=== PATIENT | male | born 1975 | race Caucasian/White ===

== ENCOUNTER 2019-09-06 21:36 | Inpatient (IN) | payer BC ==
[~2019-09-06] VITALS: Ht 180.3 cm; Wt 79.8 kg
--- NOTE | 2019-09-06 22:00 | NUR ---
Dr. Feng at bedside for MSE.
[2019-09-06] MEDS ORDERED: ONDANSETRON 4 MG/2 ML VIAL IV ONE (22:30)
[2019-09-06] MEDS ORDERED: HYDROMORPHONE 1 MG/1 ML DISP.SYRIN IV ONE (22:30)
--- NOTE | 2019-09-06 22:35 | NUR ---
Xray at bedside.
[2019-09-06] MEDS ORDERED: ONDANSETRON 4 MG/2 ML VIAL ONE (22:36)
[2019-09-06] MEDS ORDERED: HYDROMORPHONE 1 MG/1 ML DISP.SYRIN ONE (22:36)
[2019-09-06 22:41] LABS: BASOPHILS # (AUTO) 0.1 K/uL (0.0-8.0); BASOPHILS % (AUTO) 0.6 % (0.0-2.0); EOSINOPHILS % (AUTO) 0.3 % (0.0-7.0); HEMATOCRIT 41.6 % (36.7-47.1); HEMOGLOBIN 14.4 g/dL (12.5-16.3); LYMPHOCYTES # (AUTO) 1.3 K/uL (20.0-40.0); LYMPHOCYTES % (AUTO) 8.3 % (20.5-51.5); MEAN CORPUSCULAR HEMOGLOBIN 29.9 uug (23.8-33.4); MEAN CORPUSCULAR HGB CONC 35 g/dL (32.5-36.3); MEAN CORPUSCULAR VOLUME 86.1 fL (73.0-96.2); MONOCYTES # (AUTO) 1.1 K/uL (2.0-10.0); MONOCYTES % (AUTO) 6.9 % (0.0-11.0); NEUTROPHILS # (AUTO) 12.8 K/uL (1.8-8.9); NEUTROPHILS % (AUTO) 83.9 % (38.5-71.5); PLATELET COUNT (AUTO) 215 K/uL (152-348); RED BLOOD CELL COUNT(AUTO) 4.83 MIL/uL (4.06-5.63); WHITE BLOOD COUNT (AUTO) 15.3 K/uL (3.6-10.2)
[2019-09-06 22:53] LABS: CREATININE 1.3 mg/dL (0.6-1.3)
--- NOTE | 2019-09-06 22:58 | NUR ---
Called [facility] to page Aidan Nobles DNP.
[2019-09-06 22:59] LABS: BILIRUBIN,DIRECT 0.1 mg/dL (0.0-0.2); BILIRUBIN,TOTAL 0.5 mg/dL (0.2-1.0); TOTAL PROTEIN, SERUM 8.2 g/dL (6.4-8.2)
--- NOTE | 2019-09-06 23:40 | NUR ---
Dr. Feng on panel call with Aidan Nobles DNP. Patient accepted for admission to [facility], diagnosis: ruptured patella ligament.
[2019-09-06] MEDS ORDERED: Z GUARD REMEDY PASTE 57 GM TUBE TOP PRN (23:45)
[2019-09-06] MEDS ORDERED: MAGNESIUM HYDROXIDE 30 ML LIQUID UDC PO PRN (23:45)
[2019-09-06] MEDS ORDERED: HYDROMORPHONE 1 MG/1 ML DISP.SYRIN IV PRN (23:45)
[2019-09-06] MEDS ORDERED: ACETAMINOPHEN 325 MG TABLET PO PRN (23:45)
--- NOTE | 2019-09-07 00:06 | NUR ---
Report given to Abel MORALES Medsurg.
[2019-09-07 00:30] VITALS: BP 126/84
--- NOTE | 2019-09-07 01:00 | NUR ---
Received patient from ER via gurney, accompanied by ER nurse. Pt is in stable condition, with L knee immobilized. Pt verbalized pain at 6/10, with previous pain medication effective but starting to wear off. All admission orders noted and carried out. All belongings accounted for. Full assessment done and documented. No skin issues. Kept comfortable. Oriented to facility and call light. Bed kept locked in place. Fall and safety precautions maintained. Will continue to monitor.
[2019-09-07] MEDS: ONDANSETRON 4 MG/2 ML VIAL IV PRN ×2 (02:43→09:14)
[2019-09-07 05:00] VITALS: BP 122/86
[2019-09-07] MEDS ORDERED: HYDROMORPHONE 2 MG/1 ML DISP.SYRIN IV PRN (05:00)
[2019-09-07 06:34] LABS: BASOPHILS # (AUTO) 0.1 K/uL (0.0-8.0); EOSINOPHILS % (AUTO) 0.5 % (0.0-7.0); LYMPHOCYTES # (AUTO) 2.4 K/uL (20.0-40.0); MONOCYTES # (AUTO) 0.8 K/uL (2.0-10.0); RED BLOOD CELL COUNT(AUTO) 4.77 MIL/uL (4.06-5.63)
[2019-09-07 06:45] LABS: BILIRUBIN,TOTAL 0.8 mg/dL (0.2-1.0); CREATININE 0.9 mg/dL (0.6-1.3); PHOSPHOROUS 4.3 mg/dL (2.5-4.9); POTASSIUM 3.4 mmol/L (3.5-5.1); TOTAL PROTEIN, SERUM 7.6 g/dL (6.4-8.2)
[2019-09-07 06:51] LABS: BASOPHILS % (AUTO) 0.6 % (0.0-2.0); EOSINOPHILS # (AUTO) 0.1 K/uL (0.0-0.7); HEMATOCRIT 41.1 % (36.7-47.1); HEMOGLOBIN 14.1 g/dL (12.5-16.3); LYMPHOCYTES % (AUTO) 24.6 % (20.5-51.5); MEAN CORPUSCULAR HEMOGLOBIN 29.5 uug (23.8-33.4); MEAN CORPUSCULAR HGB CONC 34 g/dL (32.5-36.3); MEAN CORPUSCULAR VOLUME 86.3 fL (73.0-96.2); NEUTROPHILS # (AUTO) 6.6 K/uL (1.8-8.9); NEUTROPHILS % (AUTO) 66.3 % (38.5-71.5); PLATELET COUNT (AUTO) 212 K/uL (152-348)
[2019-09-07 06:52] LABS: WHITE BLOOD COUNT (AUTO) 9.9 K/uL (3.6-10.2)
[2019-09-07 07:03] LABS: THYROID STIMULATING HORMONE 1.884 mIU/mL (0.358-3.740)
[2019-09-07] MEDS ORDERED: POLYMYXIN B SULFATE 500,000 UNITS, BACITRACIN 50,000 UNITS, NORMAL SALINE 20 ML MC ONE ×3 (07:15)
[2019-09-07] MEDS ORDERED: VANCOMYCIN 1000 MG VIAL ONE (08:35)
[2019-09-07] MEDS: HYDROMORPHONE 2 MG/1 ML DISP.SYRIN IV PRN ×2 (09:12→13:06)
[2019-09-07 11:35] VITALS: BP 126/78
--- NOTE | 2019-09-07 13:50 | NUR ---
Patient discharged and transferred to [facility] due to insurance coverage inability ; patient will have surgery at [facility]. patient left with stable vital signs and no signs of distress; patient left via ambulance. Report given to rn at spring .
== END 2019-09-07 13:40 | disposition short-term general hospital (02) | DRG 538 ==
LOC: ER 21:38 → EDBD 21:38 → MEDSURG3 09-07 00:12
PROVIDERS: ADMIT Hospitalist; ATTEND Hospitalist
PROC: 2W3MX1Z Immobilization of Left Lower Extremity using Splint (ICD-10-PCS; principal; 2019-09-07)
DX: S76.112A Strain of left quadriceps muscle, fascia and tendon, initial encounter (principal); X50.0XXA Overexertion from strenuous movement or load, initial encounter; X50.9XXA Other and unspecified overexertion or strenuous movements or postures, initial encounter; Y93.67 Activity, basketball; Y92.89 Other specified places as the place of occurrence of the external cause; E86.0 Dehydration; R79.89 Other specified abnormal findings of blood chemistry; E87.6 Hypokalemia; E78.5 Hyperlipidemia, unspecified; D72.829 Elevated white blood cell count, unspecified
CPT/HCPCS: 36415; 83735; 84100; 84443; 85025; 85730; A4663; G0378; J1170; J2405; J3370; J3490